=== PATIENT | male | born 1990 | race Caucasian/White ===

== ENCOUNTER 2022-07-02 00:18 | Emergency (ER) | payer SELFPAY ==
[~2022-07-02] VITALS: Ht 172.7 cm; Wt 67.0 kg
[2022-07-02] MEDS ORDERED: DIPHENHYDRAMINE 50MG/ML VIAL IM STA (02:33)
[2022-07-02] MEDS ORDERED: ZIPRASIDONE MESYLATE 20MG/VIAL IM STA (02:33)
[2022-07-02] MEDS ORDERED: MIDAZOLAM HCL 2 MG/2 ML VIAL IM ONE (02:45)
[2022-07-02 05:06] LABS: BASOPHILS % 0.5 % (0.0-2.0); EOSINOPHILS % 0.6 % (0.0-5.0); HEMATOCRIT. 40.5 % (42.0-52.0); HEMOGLOBIN. 13.7 g/dL (14.0-18.0); LYMPHOCYTES % 16.9 % (20.0-50.0); MEAN CORPUSCULAR HEMOGLOBIN 31.5 pg (28.0-32.0); MEAN CORPUSCULAR VOLUME 93.4 fL (80.0-94.0); MEAN PLATELET VOLUME 8.7 fl (7.4-10.4); PLATELET 382 x1000/uL (130-400); RED BLOOD CELL COUNT 4.34 mill/uL (4.7-6.1); RED CELL DISTRIBUTION WIDTH 14.5 % (11.6-14.6)
[2022-07-02 05:08] LABS: CHLORIDE 106 mEq/L (98-107)
[2022-07-02 05:17] LABS: ETHANOL BLOOD < 10 mg/dL
[2022-07-02 05:46] LABS: CLARITY URINE TURBID (CLEAR); COLOR URINE YELLOW (YELLOW); KETONES URINE 1+ (NEGATIVE); LEUKOCYTE ESTERASE URINE NEGATIVE (NEGATIVE); NITRITE URINE NEGATIVE (NEGATIVE); OCCULT BLOOD URINE NEGATIVE (NEGATIVE); PH URINE 5.5 (4.5-8.0); PROTEIN URINE 1+ (NEGATIVE); SPECIFIC GRAVITY URINE 1.031 (1.005-1.030); UROBILINOGEN URINE 0.2 E.U./dL (0.2-1.0)
[2022-07-02 06:13] LABS: *AMPHETAMINES SCREEN URINE PRESUMTIVE POSITIVE (NEGATIVE); *BARBITURATES SCREEN URINE NEGATIVE (NEGATIVE); *BENZODIAZEPINES SCREEN URINE PRESUMTIVE POSITIVE (NEGATIVE); *COCAINE SCREEN URINE NEGATIVE (NEGATIVE); CANNABINOID URINE SCREEN NEGATIVE (NEGATIVE); METHADONE URINE SCREEN NEGATIVE (NEGATIVE); OPIATES URINE SCREEN NEGATIVE (NEGATIVE); PHENCYCLIDINE URINE SCREEN NEGATIVE (NEGATIVE)
[2022-07-02 09:59] VITALS: BP 116/80
== END 2022-07-02 10:27 | disposition home or self-care (01) ==
LOC: EDBD 00:18 → ER 00:18
DX: F19.10 Other psychoactive substance abuse, uncomplicated (principal)
CPT/HCPCS: 36415; 80053; 80305; 80307; 80320; 80329; 81003; 85025; 96372; 99284; J1200; J2250; J3486; G0480